=== PATIENT | male | born 1960 | race Two or more races ===

== ENCOUNTER 2022-02-18 21:08 | Inpatient (IN) | payer OTHER ==
[~2022-02-18] VITALS: Ht 185.4 cm; Wt 73.8 kg
[2022-02-18 22:56] LABS: Basophils # (auto) 0 10 ^3/uL (0-0.2); Basophils % (auto) 0.6 % (0.0-2.0); Eosinophils # (auto) 0 10 ^3/uL (0-0.8); Hematocrit 33.8 % (41.0-53.0); Lymphocytes # (auto) 0.1 10 ^3/uL (0.4-5.4); Lymphocytes % (auto) 2.4 % (10.0-50.0); Mean Corpuscular Hgb Conc. 32.6 g/dL (32.0-36.0); Mean Corpuscular Volume 67.7 fL (80.0-100.0); Monocytes # (auto) 0.4 10 ^3/uL (0-1.3); Neutrophils # (auto) 3.8 10 ^3/uL (1.6-8.6); Nucleated Red Blood Cells % 0.1 %; Red Cell Distribution Width 17.4 % (11.8-14.3); White Blood Cell 4.3 10^3/uL (4.4-10.8)
[2022-02-18 23:13] LABS: Alanine Aminotransferase 58 U/L (16-61); Albumin 3.9 g/dL (3.4-5.0); Anion Gap 10 (5-15); Aspartate Aminotransferase 85 U/L (15-37); BUN/Creatinine Ratio 27.4; Blood Alcohol < 3.0 mg/dL (0-5); Blood Urea Nitrogen 17 mg/dL (7-18); Calcium 9.2 mg/dL (8.5-10.1); Carbon Dioxide 29 mmol/L (21-32); Chloride 93 mmol/L (98-107); GFR African American 171 mL/min; GFR Non-African American 141 mL/min; Glucose 129 mg/dL (74-106); Potassium 3.1 mmol/L (3.5-5.1); Sodium 132 mmol/L (136-145)
[2022-02-18 23:15] LABS: Lactic Acid w/Reflex 3.2 mmol/L (0.4-2.0)
[2022-02-18 23:16] LABS: Alkaline Phosphatase 55 U/L (45-117); Bilirubin, Total 0.4 mg/dL (0.2-1.0); Total Protein 6.7 g/dL (6.4-8.2)
[2022-02-18] MEDS ORDERED: levoFLOXacin 500MG 100 ML IV ONE (23:30)
[2022-02-18] MEDS ORDERED: SODIUM CHLORIDE 0.9% 500 ML IV ONE (23:30)
[2022-02-19] MEDS: POTASSIUM CHL 20MEQ/100ML 100 ML IV SCH ×2 (02:43→05:03)
[2022-02-19 02:56] LABS: Alcohol, Urine < 3.0 mg/dL (0-10); Amphetamine Screen, Urine NEGATIVE (NEGATIVE); Barbiturate Scree,Urine NEGATIVE (NEGATIVE); Benzodiazephine Screen, Urine NEGATIVE (NEGATIVE); Cannabinoid Screen, Urine NEGATIVE (NEGATIVE); Cocaine Screen, Urine NEGATIVE (NEGATIVE); Opiate Scree,Urine NEGATIVE (NEGATIVE); Phencyclidine Screen, Urine NEGATIVE (NEGATIVE)
[2022-02-19 03:12] LABS: Urine Bacteria NONE SEEN /hpf (None Seen); Urine Blood 1+ /uL (Negative); Urine Hyaline Cast FEW /lpf (0 - 2); Urine Specific Gravity 1.014 (1.001-1.035); Urine WBC 2 /hpf (0 - 3)
[2022-02-19] MEDS ORDERED: OLAN1TAB19 PO ×2 (04:38)
[2022-02-19] MEDS ORDERED: TRAZ1TAB12 PO ×2 (04:38)
[2022-02-19] MEDS ORDERED: ACETAMINOPHEN 325 MG TAB PO PRN (05:15)
[2022-02-19] MEDS ORDERED: TEMAZEPAM 15 MG CAP PO PRN (05:15)
[2022-02-19 06:28] LABS: Potassium 3.3 mmol/L (3.5-5.1)
[2022-02-19 06:32] LABS: Calcium 8.6 mg/dL (8.5-10.1)
[2022-02-19] MEDS ORDERED: DEXTROSE (50%) 50ML SYRG IV ONE (07:00)
[2022-02-19] MEDS: cefTRIAXone 1GM/50ML D5W 50 ML IV SCH (09:00)
[2022-02-19] MEDS: PANTOPRAZOLE 40 MG TAB PO SCH (10:00)
[2022-02-19] MEDS: OLANZapine 5 MG TAB PO SCH ×2 (10:00→23:17)
[2022-02-19] MEDS ORDERED: LORazepam 2MG/ML-1ML VIAL IV ONE (14:15)
[2022-02-19 17:00] VITALS: BP 123/81
[2022-02-19] MEDS ORDERED: LORazepam 2MG/ML-1ML VIAL IV PRN (19:45)
[2022-02-19 23:13] LABS: Cholesterol 178 mg/dL (< 200)
[2022-02-19 23:16] LABS: HDL Cholesterol 100 mg/dL (40-59); LDL Cholesterol 63 mg/dL (< 100); Triglycerides 39 mg/dL (< 150)
[2022-02-19] MEDS: ATORVASTATIN 20 MG TAB PO SCH (23:17)
[2022-02-19] MEDS: traZODone HCL 50 MG TAB PO SCH (23:17)
[2022-02-20 04:00] VITALS: BP 110/70
[2022-02-20 05:35] VITALS: BP 148/90
[2022-02-20 06:52] LABS: Hematocrit 32.3 % (41.0-53.0); Hemoglobin 10.8 g/dL (13.5-17.5); Mean Corpuscular Hemoglobin 22.7 pg (28.0-32.0); Mean Corpuscular Hgb Conc. 33.5 g/dL (32.0-36.0); Mean Corpuscular Volume 67.7 fL (80.0-100.0); Red Blood Cells 4.76 10^6/uL (4.5-5.90); Red Cell Distribution Width 17.6 % (11.8-14.3); White Blood Cell 9.3 10^3/uL (4.4-10.8)
[2022-02-20 06:54] LABS: Basophils % (manual) 0 (0.0-2.0); Blast Cells 0; Eosinophils % (manual) 0 (0-7); Metamyelocytes % 0; Myelocytes % 0; Promyelocytes % 0; Reactive Lymphocytes 0
[2022-02-20 07:40] VITALS: BP 110/70
[2022-02-20 09:12] LABS: Band Neutrophils % (manual) 8; Lymphocytes % (manual) 8 (10.0-50.0)
[2022-02-20 09:13] LABS: Monocytes % (manual) 2 (0-12)
[2022-02-20] MEDS: cefTRIAXone 1GM/50ML D5W 50 ML IV SCH (09:24)
[2022-02-20] MEDS: ASPirin 81 mg TAB PO SCH (09:25)
[2022-02-20] MEDS: OLANZapine 5 MG TAB PO SCH ×2 (09:25→21:29)
[2022-02-20] MEDS: PANTOPRAZOLE 40 MG TAB PO SCH (09:25)
[2022-02-20 13:40] VITALS: BP 119/67
[2022-02-20] MEDS ORDERED: LORazepam 0.5 MG TAB PO PRN (15:45)
[2022-02-20 17:20] VITALS: BP 92/64
[2022-02-20] MEDS: ATORVASTATIN 20 MG TAB PO SCH (21:29)
[2022-02-20] MEDS: traZODone HCL 50 MG TAB PO SCH (21:29)
[2022-02-20 22:00] VITALS: BP 99/62
[2022-02-21 05:00] VITALS: BP 100/52
[2022-02-21 09:50] VITALS: BP 90/51
[2022-02-21] MEDS: PANTOPRAZOLE 40 MG TAB PO SCH (10:47)
[2022-02-21] MEDS: ASPirin 81 mg TAB PO SCH (10:47)
[2022-02-21] MEDS: OLANZapine 5 MG TAB PO SCH ×2 (10:48→21:07)
[2022-02-21 13:00] VITALS: BP 109/61
[2022-02-21] MEDS ORDERED: LORazepam 0.5 MG TAB PO PRN (16:00)
[2022-02-21] MEDS ORDERED: LORazepam 2MG/ML-1ML VIAL IV PRN (16:45)
[2022-02-21 20:00] VITALS: BP 108/70
[2022-02-21] MEDS: ATORVASTATIN 20 MG TAB PO SCH (21:06)
[2022-02-21] MEDS: traZODone HCL 50 MG TAB PO SCH (21:07)
[2022-02-21 22:00] VITALS: BP 108/70
[2022-02-22] VITALS (7 sets, daily range): BP systolic 108–140; BP diastolic 57–73
[2022-02-22] MEDS: ASPirin 81 mg TAB PO SCH (10:27)
[2022-02-22] MEDS: PANTOPRAZOLE 40 MG TAB PO SCH (10:28)
[2022-02-22] MEDS: OLANZapine 5 MG TAB PO SCH ×2 (10:28→21:15)
[2022-02-22] MEDS: ATORVASTATIN 20 MG TAB PO SCH (21:15)
[2022-02-22] MEDS: traZODone HCL 50 MG TAB PO SCH (21:16)
[2022-02-23 05:00] VITALS: BP 116/61
[2022-02-23 05:44] LABS: Basophils # (auto) 0 10 ^3/uL (0-0.2); Eosinophils # (auto) 0 10 ^3/uL (0-0.8); Lymphocytes # (auto) 0.6 10 ^3/uL (0.4-5.4); Monocytes # (auto) 0.8 10 ^3/uL (0-1.3); Neutrophils # (auto) 3.4 10 ^3/uL (1.6-8.6); Nucleated Red Blood Cells % 0.1 %; White Blood Cell 4.9 10^3/uL (4.4-10.8)
[2022-02-23 05:47] LABS: Basophils % (auto) 0.6 % (0.0-2.0); Eosinophils % (auto) 0.2 % (0.0-7.0); Hematocrit 29.2 % (41.0-53.0); Hemoglobin 9.6 g/dL (13.5-17.5); Lymphocytes % (auto) 12.7 % (10.0-50.0); Mean Corpuscular Hemoglobin 22.5 pg (28.0-32.0); Mean Corpuscular Volume 68.2 fL (80.0-100.0); Monocytes % (auto) 16.8 % (0.0-12.0); Neutrophils % (auto) 69.7 % (37.0-80.0); Red Blood Cells 4.28 10^6/uL (4.5-5.90); Red Cell Distribution Width 17.7 % (11.8-14.3)
[2022-02-23 06:11] LABS: Albumin 2.7 g/dL (3.4-5.0); BUN/Creatinine Ratio 21.1; Calcium 8.7 mg/dL (8.5-10.1)
[2022-02-23 06:14] LABS: Bilirubin, Total 0.5 mg/dL (0.2-1.0)
[2022-02-23 08:00] VITALS: BP 96/53
[2022-02-23] MEDS: OLANZapine 5 MG TAB PO SCH ×2 (09:44→22:27)
[2022-02-23] MEDS: PANTOPRAZOLE 40 MG TAB PO SCH (09:44)
[2022-02-23 12:00] VITALS: BP 118/102
[2022-02-23 16:00] VITALS: BP 151/77
[2022-02-23 20:00] VITALS: BP 109/70
[2022-02-23 22:00] VITALS: BP 109/70
[2022-02-23] MEDS: traZODone HCL 50 MG TAB PO SCH (22:28)
[2022-02-24 05:00] VITALS: BP 116/67
[2022-02-24 09:00] VITALS: BP 111/74
[2022-02-24] MEDS: PANTOPRAZOLE 40 MG TAB PO SCH (09:55)
[2022-02-24] MEDS: OLANZapine 5 MG TAB PO SCH (09:55)
[2022-02-24 13:00] VITALS: BP 121/69
[2022-02-24 17:00] VITALS: BP 102/65
== END 2022-02-24 18:41 | disposition home or self-care (01) | DRG 52 ==
LOC: ER 21:08 → OVERFLOW 02-19 05:01 → EAST 02-19 16:13 → WEST WING 02-19 21:20
PROVIDERS: ADMIT Nurse Practitioner; ATTEND Internal Medicine
DX: G93.41 Metabolic encephalopathy (principal); F20.9 Schizophrenia, unspecified; J01.90 Acute sinusitis, unspecified; Z20.822 Contact with and (suspected) exposure to COVID-19; Z79.82 Long term (current) use of aspirin; Z79.899 Other long term (current) drug therapy; Z82.0 Family history of epilepsy and other diseases of the nervous system; Z82.49 Family history of ischemic heart disease and other diseases of the circulatory system; Z83.3 Family history of diabetes mellitus
CPT/HCPCS: 36415; 70450; 70551; 71045; 80048; 80053; 80061; 80307; 80320; 81001; 82962; 83605; 84443; 84484; 85007; 85025; 85027; 87040; 87086; 87426; 87804; 92610; 93005; 93306; 93886; 96361; 96365; 96366; 96367; 96375; G0378; J0696; J1956; J3480

== ENCOUNTER 2022-03-09 13:03 | Emergency (ER) | payer OTHER ==
[~2022-03-09] VITALS: Ht 190.5 cm; Wt 74.2 kg
[~2022-03-09 13:03] MED LIST: OLAN1TAB19 PO; TRAZ1TAB12 PO
[2022-03-09] MEDS ORDERED: SULF10SO31 OP (16:05)
[2022-03-09 16:27] VITALS: BP 160/58
== END 2022-03-09 16:32 | disposition home or self-care (01) ==
LOC: ER 13:03
DX: H11.32 Conjunctival hemorrhage, left eye (principal); F20.9 Schizophrenia, unspecified